=== PATIENT | male | born 1945 | race American Indian/Alaskan Native ===

== ENCOUNTER 2017-03-29 13:26 | Outpatient (CLI) | payer BC ==
--- NOTE | 2017-03-29 14:03 | XRay Report ---
LEFT ELBOW THREE VIEWS: 03/29/17 13:26:00 CLINICAL: Trauma and left elbow pain. FINDINGS: No fracture or dislocation. 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 No joint effusion. No bursal distention. IMPRESSION: Osteoarthritis. No apparent traumatic injury.
== END 2017-03-29 13:27 | disposition home or self-care (01) ==
LOC: SPVIMAG 13:26
PROVIDERS: ATTEND Internal Medicine
DX: M19.022 Primary osteoarthritis, left elbow (principal)